=== PATIENT | male | born 1965 | race Caucasian/White ===

== ENCOUNTER 2017-08-12 11:29 | Emergency (ER) | payer OTHER ==
[~2017-08-12] VITALS: Ht 165.1 cm; Wt 74.4 kg
[2017-08-12 11:30] VITALS: BP 138/81
--- NOTE | 2017-08-12 12:27 | NUR ---
Patient to bed 11.
--- NOTE | 2017-08-12 12:28 | NUR ---
52/M PRESENT TO E/R C/O RT CALF PAIN x TODAY 0800. PT STATES HE WAS CLEANING AT WORK AND HIS RT CALF STARTED HURTING. AAOx4, PERRLA, BREATHING EVEN AND UNLABORED. ERMD NOTIFIED OF PATIENT STATUS.
[2017-08-12] MEDS ORDERED: KETOROLAC 60 MG/2 ML VIAL IM ONE (12:40)
--- NOTE | 2017-08-12 13:00 | NUR ---
Patient being evaluated by physician at bedside.
[2017-08-12 13:29] VITALS: BP 128/74
== END 2017-08-12 13:29 | disposition home or self-care (01) ==
LOC: MED 11:29
DX: M79.661 Pain in right lower leg (principal)
CPT/HCPCS: 96372; 99283; J1885